=== PATIENT | female | born 1990 | race Two or more races ===

== ENCOUNTER 2018-10-30 21:16 | Emergency (ER) | payer SELFPAY ==
[~2018-10-30] VITALS: Ht 149.9 cm; Wt 77.1 kg
--- NOTE | 2018-10-30 21:21 | ED.ADGEN ---
Past History Past Medical History: Kidney Stones, UTI Adult General Chief Complaint Chief Complaint ".. I am hurting really bad.. on my Rt. flank.. like when I had a kidney stone before..." HPI HPI Patient is a 27 year old female who presents with above hx and complaints of Flank pain, nausea and vomiting. Patient rates pain as severe. Pain is in right flank and radiates to her pelvic area. No history of vaginal discharge. No history of trauma. Pt. has hx prior renal stone age 16. Pt. has had previous urinary tract infections. Patient denies intake of bad food, travel or specific ill contacts. Patient normally healthy. No history immunosuppression. Review of Systems Review of Systems Constitutional: Denies fever or chills [] Eyes: Denies change in visual acuity, redness, or eye pain [] HENT: Denies nasal congestion or sore throat [] Respiratory: Denies cough or shortness of breath [] Cardiovascular: No additional information not addressed in HPI [] GI: Plaints of right flank abdominal pain, nausea, vomiting. Denies, bloody stools or diarrhea [] : Denies dysuria or hematuria [] Musculoskeletal: Right flank back pain Integument: Denies rash or skin lesions [] Neurologic: Denies headache, focal weakness or sensory changes [] Endocrine: Denies polyuria or polydipsia [] All other systems were reviewed and found to be within normal limits, except as documented in this note. Family History Family History Noncontributory. No history of gallstones. No history of renal stones. No history of colitis. Current Medications Current Medications Current Medications Medications (Trade) Dose Ordered Sig/Qamar Start Time Stop Time Status Last Admin Dose Admin Ceftriaxone Sodium 1 gm/ Sodium Chloride 50 ml @ 100 mls/hr 1X ONCE 10/30/18 23:30 10/30/18 23:59 DC 10/30/18 23:12 100 MLS/HR Ceftriaxone Sodium (Rocephin) 1 gm STK-MED ONCE 10/30/18 23:10 10/30/18 23:11 DC Diphenhydramine HCl (Benadryl) 50 mg 1X ONCE 10/31/18 01:00 10/31/18 01:01 10/31/18 00:42 50 MG Famotidine (Pepcid Vial) 20 mg 1X ONCE 5/28/19 22:30 10/30/18 22:31 DC 10/30/18 22:25 20 MG Ketorolac Tromethamine (Toradol 30mg Vial) 30 mg 1X ONCE 10/30/18 23:30 10/30/18 23:31 DC 10/30/18 23:31 30 MG Lactated Ringer's 1,000 ml @ 1,000 mls/hr Q1H 10/30/18 22:04 10/30/18 23:03 DC 10/30/18 22:26 1,000 MLS/HR Morphine Sulfate (Morphine 10mg Syringe) 10 mg 1X ONCE 10/31/18 00:00 10/31/18 00:01 DC 10/31/18 00:07 10 MG Ondansetron HCl (Zofran) 8 mg 1X ONCE 10/31/18 00:00 10/31/18 00:01 DC 10/31/18 00:06 8 MG Prochlorperazine Edisylate (Compazine) 10 mg 1X ONCE 10/31/18 01:00 10/31/18 01:01 10/31/18 00:42 10 MG Sodium Chloride 50 ml @ As Directed STK-MED ONCE 10/30/18 23:10 10/30/18 23:11 DC Trimethoprim/ Sulfamethoxazole (Bactrim Ds) 1 tab 1X ONCE 10/31/18 00:00 10/31/18 00:01 DC 10/31/18 00:07 1 TAB Allergies Allergies Allergies Coded Allergies Type Severity Reaction Last Updated Verified No Known Drug Allergies 10/30/18 No Physical Exam Physical Exam Constitutional: Well developed, well nourished, in acute distress, non-toxic rowena earance. [] HENT: Normocephalic, atraumatic, bilateral external ears normal, oropharynx moist, no oral exudates, nose normal. [] Eyes: PERRLA, EOMI, conjunctiva normal, no discharge. [] Neck: Normal range of motion, no tenderness, supple, no stridor. [] Cardiovascular:Heart rate regular rhythm, no murmur [] Lungs & Thorax: Bilateral breath sounds equal apexes with a few scattered wheezes on bilateral bases on auscultation []no true rebound Abdomen: Bowel sounds decreased, soft, right flank tenderness, no masses, no pulsatile masses. [Mild epigastric tenderness. No true rebound.] Skin: Warm, dry, no erythema, no rash. Tattoos Back: No tenderness, right CVA tenderness. [] Extremities: No tenderness, no cyanosis, no clubbing, ROM intact, no edema. [] No psoas sign Neurologic: Alert and oriented X 3, normal motor function, normal sensory function, no focal deficits noted. [] Psychologic: Affect anxious, judgement normal, mood normal. [] Current Patient Data Vital Signs Vital Signs Date Time Temp Pulse Resp B/P (MAP) Pulse Ox O2 Delivery O2 Flow Rate FiO2 10/31/18 00:07 18 Room Air 10/30/18 23:06 98.3 71 130/83 (99) 99 Lab Results Laboratory Tests Test 10/30/18 21:29 10/30/18 21:46 10/30/18 22:00 10/30/18 22:04 Urine Collection Type Unknown Urine Color Carmenza Urine Clarity Hazy Urine pH 6.0 Urine Specific [place] 1.025 Urine Protein >100 mg/dl (NEG-TRACE) Urine Glucose (UA) Neg mg/dL (NEG) Urine Ketones (Stick) Trace mg/dL (NEG) Urine Blood Large (NEG) Urine Nitrite Neg (NEG) Urine Bilirubin Neg (NEG) Urine Urobilinogen Dipstick 1 mg/dL (0.2 mg/dL) Urine Leukocyte Esterase Trace (NEG) Urine RBC Tntc /HPF (0-2) Urine WBC 11-20 /HPF (0-4) Urine Squamous Epithelial Cells Occ /LPF Urine Bacteria Few /HPF (0-FEW) Urine Mucus Mod /LPF Urine Opiates Screen Neg (NEG) Urine Methadone Screen Neg (NEG) Urine Barbiturates Neg (NEG) Urine Phencyclidine Screen Neg (NEG) Urine Amphetamine/Methamphetamine Neg (NEG) Urine Benzodiazepines Screen Neg (NEG) Urine Cocaine Screen Neg (NEG) Urine Cannabinoids Screen Pos (NEG) Urine Ethyl Alcohol Neg (NEG) White Blood Count 11.1 x10^3/uL (4.0-11.0) H Red Blood Count 4.86 x10^6/uL (3.50-5.40) Hemoglobin 14.7 g/dL (12.0-15.5) Hematocrit 43.3 % (36.0-47.0) Mean Corpuscular Volume 89 fL (79-100) Mean Corpuscular Hemoglobin 30 pg (25-35) Mean Corpuscular Hemoglobin Concent 34 g/dL (31-37) Red Cell Distribution Width 12.6 % (11.5-14.5) Platelet Count 269 x10^3/uL (140-400) Neutrophils (%) (Auto) 76 % (31-73) H Lymphocytes (%) (Auto) 19 % (24-48) L Monocytes (%) (Auto) 5 % (0-9) Eosinophils (%) (Auto) 0 % (0-3) Basophils (%) (Auto) 0 % (0-3) Neutrophils # (Auto) 8.5 x10^3uL (1.8-7.7) H Lymphocytes # (Auto) 2.1 x10^3/uL (1.0-4.8) Monocytes # (Auto) 0.6 x10^3/uL (0.0-1.1) Eosinophils # (Auto) 0.0 x10^3/uL (0.0-0.7) Basophils # (Auto) 0.0 x10^3/uL (0.0-0.2) Prothrombin Time 10.5 SEC (9.4-11.4) Prothrombin Time INR 1.1 (0.9-1.1) PTT 28 SEC (23-33) Sodium Level 141 mmol/L (136-145) Potassium Level 3.6 mmol/L (3.5-5.1) Chloride Level 103 mmol/L (98-107) Carbon Dioxide Level 25 mmol/L (21-32) Anion Gap 13 (6-14) Blood Urea Nitrogen 16 mg/dL (7-20) Creatinine 0.9 mg/dL (0.6-1.0) Estimated GFR (Cockcroft-Gault) 75.1 Glucose Level 96 mg/dL (70-99) Calcium Level 9.3 mg/dL (8.5-10.1) Total Bilirubin 0.3 mg/dL (0.2-1.0) Direct Bilirubin 0.1 mg/dL (0.0-0.2) Aspartate Amino Transferase (AST) 15 U/L (15-37) Alanine Aminotransferase (ALT) 26 U/L (14-59) Alkaline Phosphatase 88 U/L (46-116) Total Protein 8.2 g/dL (6.4-8.2) Albumin 4.2 g/dL (3.4-5.0) Lipase 118 U/L (73-393) POC Urine HCG, Qualitative hcg negative (Negative) EKG EKG My interpretation of EKG shows sinus rhythm at 73 bpm no findings acute STEMI with contralateral changes.[] Radiology/Procedures Radiology/Procedures My interpretation of acute abdomen film shows no acute cardiopulmonary findings. Does have findings of gallstones on right. Does have findings of a renal stone or calcification on right lower pelvis area. CT of abdomen shows gallstones. Hydronephrosis on right. In the distal 6 mm stone. No ovarian cysts. Appendix appears to be normal. See formal report when available Course & Med Decision Making Course & Med Decision Making Pertinent Labs and Imaging studies reviewed. (See chart for details) Push clear fluids. No solids or milk products of actively nauseated. Save stone if passed. Take Vicoprofen up to 4 times a day for pain. May also take Tylenol and ibuprofen. Take Zofran 8 mg up 4 times a day for nausea and vomiting. Take Bactrim DS twice a day for 7 days. Follow up urine cultures. Follow up with primary. Follow-up with urology. Return if any concerns. Encouraged patient to not smoke. [] Final Impression Final Impression 1. Abdomen pain 2. Renal colic-distal renal stone 6 mm@UVJ[] 3. Leukocytosis 11 4. Marijuana and tobacco use 5. Urinary tract infection Dragon Disclaimer Dragon Disclaimer This electronic medical record was generated, in whole or in part, using a voice recognition dictation system. Discharge Summary Visit Information Final Diagnosis Problems Medical Problems: (1) Kidney stone Status: Acute (2) Renal colic on right side Status: Acute Brief Hospital Course Allergies Allergies Coded Allergies Type Severity Reaction Last Updated Verified No Known Drug Allergies 10/30/18 No Vital Signs Vital Signs Date Time Temp Pulse Resp B/P (MAP) Pulse Ox O2 Delivery O2 Flow Rate FiO2 10/31/18 00:07 18 Room Air 10/30/18 23:06 98.3 71 130/83 (99) 99 Lab Results Laboratory Tests Test 10/30/18 21:29 10/30/18 21:46 10/30/18 22:00 10/30/18 22:04 Urine Collection Type Unknown Urine Color Carmenza Urine Clarity Hazy Urine pH 6.0 Urine Specific [place] 1.025 Urine Protein >100 mg/dl (NEG-TRACE) Urine Glucose (UA) Neg mg/dL (NEG) Urine Ketones (Stick) Trace mg/dL (NEG) Urine Blood Large (NEG) Urine Nitrite Neg (NEG) Urine Bilirubin Neg (NEG) Urine Urobilinogen Dipstick 1 mg/dL (0.2 mg/dL) Urine Leukocyte Esterase Trace (NEG) Urine RBC Tntc /HPF (0-2) Urine WBC 11-20 /HPF (0-4) Urine Squamous Epithelial Cells Occ /LPF Urine Bacteria Few /HPF (0-FEW) Urine Mucus Mod /LPF Urine Opiates Screen Neg (NEG) Urine Methadone Screen Neg (NEG) Urine Barbiturates Neg (NEG) Urine Phencyclidine Screen Neg (NEG) Urine Amphetamine/Methamphetamine Neg (NEG) Urine Benzodiazepines Screen Neg (NEG) Urine Cocaine Screen Neg (NEG) Urine Cannabinoids Screen Pos (NEG) Urine Ethyl Alcohol Neg (NEG) White Blood Count 11.1 x10^3/uL (4.0-11.0) Red Blood Count 4.86 x10^6/uL (3.50-5.40) Hemoglobin 14.7 g/dL (12.0-15.5) Hematocrit 43.3 % (36.0-47.0) Mean Corpuscular Volume 89 fL (79-100) Mean Corpuscular Hemoglobin 30 pg (25-35) Mean Corpuscular Hemoglobin Concent 34 g/dL (31-37) Red Cell Distribution Width 12.6 % (11.5-14.5) Platelet Count 269 x10^3/uL (140-400) Neutrophils (%) (Auto) 76 % (31-73) Lymphocytes (%) (Auto) 19 % (24-48) Monocytes (%) (Auto) 5 % (0-9) Eosinophils (%) (Auto) 0 % (0-3) Basophils (%) (Auto) 0 % (0-3) Neutrophils # (Auto) 8.5 x10^3uL (1.8-7.7) Lymphocytes # (Auto) 2.1 x10^3/uL (1.0-4.8) Monocytes # (Auto) 0.6 x10^3/uL (0.0-1.1) Eosinophils # (Auto) 0.0 x10^3/uL (0.0-0.7) Basophils # (Auto) 0.0 x10^3/uL (0.0-0.2) Prothrombin Time 10.5 SEC (9.4-11.4) Prothromb Time International Ratio 1.1 (0.9-1.1) Activated Partial Thromboplast Time 28 SEC (23-33) Sodium Level 141 mmol/L (136-145) Potassium Level 3.6 mmol/L (3.5-5.1) Chloride Level 103 mmol/L (98-107) Carbon Dioxide Level 25 mmol/L (21-32) Anion Gap 13 (6-14) Blood Urea Nitrogen 16 mg/dL (7-20) Creatinine 0.9 mg/dL (0.6-1.0) Estimated GFR (Cockcroft-Gault) 75.1 Glucose Level 96 mg/dL (70-99) Calcium Level 9.3 mg/dL (8.5-10.1) Total Bilirubin 0.3 mg/dL (0.2-1.0) Direct Bilirubin 0.1 mg/dL (0.0-0.2) Aspartate Amino Transf (AST/SGOT) 15 U/L (15-37) Alanine Aminotransferase (ALT/SGPT) 26 U/L (14-59) Alkaline Phosphatase 88 U/L (46-116) Total Protein 8.2 g/dL (6.4-8.2) Albumin 4.2 g/dL (3.4-5.0) Lipase 118 U/L (73-393) Bedside Urine HCG, Qualitative hcg negative (Negative) Brief Hospital Course Ms. Boateng is a 27 old female who presented with Rt. renal stone. Discharge Information Condition at Discharge: Improved, Stable Disposition/Orders: D/C to Home Dischare Medications Current Medications Lactated Ringer's 1,000 ml @ 1,000 mls/hr Q1H IV Last administered on 10/30/18at 22:26; Admin Dose 1,000 MLS/HR; Start 10/30/18 at 22:04; Stop 10/30/18 at 23:03; Status DC Ondansetron HCl (Zofran) 8 mg 1X ONCE IV Last administered on 10/30/18at 22:25; Admin Dose 8 MG; Start 10/30/18 at 22:30; Stop 10/30/18 at 22:31; Status DC Famotidine (Pepcid Vial) 20 mg 1X ONCE IVP Last administered on 10/30/18at 22:25; Admin Dose 20 MG; Start 10/30/18 at 22:30; Stop 10/30/18 at 22:31; Status DC Morphine Sulfate (Morphine 10mg Syringe) 10 mg 1X ONCE SQ Last administered on 10/30/18at 22:24; Admin Dose 10 MG; Start 10/30/18 at 22:30; Stop 10/30/18 at 22:31; Status DC Ceftriaxone Sodium 1 gm/ Sodium Chloride 50 ml @ 100 mls/hr 1X ONCE IV Last administered on 10/30/18at 23:12; Admin Dose 100 MLS/HR; Start 10/30/18 at 23:30; Stop 10/30/18 at 23:59; Status DC Ketorolac Tromethamine (Toradol 30mg Vial) 30 mg 1X ONCE IV Last administered on 10/30/18at 23:31; Admin Dose 30 MG; Start 10/30/18 at 23:30; Stop 10/30/18 at 23:31; Status DC Sodium Chloride 50 ml @ As Directed STK-MED ONCE .ROUTE ; Start 10/30/18 at 23:10; Stop 10/30/18 at 23:11; Status DC Ceftriaxone Sodium (Rocephin) 1 gm STK-MED ONCE .ROUTE ; Start 10/30/18 at 23:10; Stop 10/30/18 at 23:11; Status DC Morphine Sulfate (Morphine 10mg Syringe) 10 mg 1X ONCE SQ Last administered on 10/31/18at 00:07; Admin Dose 10 MG; Start 10/31/18 at 00:00; Stop 10/31/18 at 00:01; Status DC Ondansetron HCl (Zofran) 8 mg 1X ONCE IV Last administered on 10/31/18at 00:06; Admin Dose 8 MG; Start 10/31/18 at 00:00; Stop 10/31/18 at 00:01; Status DC Trimethoprim/ Sulfamethoxazole (Bactrim Ds) 1 tab 1X ONCE PO Last administered on 10/31/18at 00:07; Admin Dose 1 TAB; Start 10/31/18 at 00:00; Stop 10/31/18 at 00:01; Status DC Prochlorperazine Edisylate (Compazine) 10 mg 1X ONCE IM Last administered on 10/31/18at 00:42; Admin Dose 10 MG; Start 10/31/18 at 01:00; Stop 10/31/18 at 01:01 Diphenhydramine HCl (Benadryl) 50 mg 1X ONCE IM Last administered on 10/31/18at 00:42; Admin Dose 50 MG; Start 10/31/18 at 01:00; Stop 10/31/18 at 01:01 Active Scripts Active Bactrim Ds Tablet (Sulfamethoxazole/Trimethoprim) 1 Each Tablet 1 Tab PO BID Zofran (Ondansetron Hcl) 8 Mg Tablet 8 Mg PO QIDPRN PRN Hydrocodone-Ibuprofen 7.5-200 (Hydrocodone/Ibuprofen) 1 Each Tablet 1 Tab PO PRN Q6HRS PRN Dragon Disclaimer This chart was dictated in whole or in part using Voice Recognition software in a busy, high-work load, and often noisy Emergency Department environment. It may contain unintended and wholly unrecognized errors or omissions. ERINN OCONNOR MD October 30, 2018 21:20
[2018-10-30] MEDS ORDERED: IV RINGERS SOLUTION,LACTATED 1,000 ML IV SCH (22:04)
--- NOTE | 2018-10-30 22:15 | EKG ---
[address] [address] Test Date: 2018-10-30 Test Time: 22:15:04 Pat Name: KRYSTINA DENNEY Department: Room: Gender: F [employer]: : 1990 Requested By: ERINN OCONNOR Order Number: [id number] Reading MD: Measurements Intervals [place] Rate: 73 P: 28 DE: 128 QRS: 34 QRSD: 76 T: 11 QT: 352 QTc: 391 Interpretive Statements SINUS RHYTHM NORMAL ECG RI6.01 No previous ECG available for comparison
[2018-10-30 22:24] LABS: BASO % 0 % (0-3); EOS % 0 % (0-3); HEMATOCRIT 43.3 % (36.0-47.0); HEMOGLOBIN 14.7 g/dL (12.0-15.5); LYMPH # 2.1 x10^3/uL (1.0-4.8); LYMPH % 19 % (24-48); MEAN CORPUSCULAR HEMOGLOBIN 30 pg (25-35); MEAN CORPUSCULAR HGB CONC 34 g/dL (31-37); MEAN CORPUSCULAR VOLUME 89 fL (79-100); MONO # 0.6 x10^3/uL (0.0-1.1); MONO % 5 % (0-9); NEUT # 8.5 x10^3uL (1.8-7.7); NEUT % 76 % (31-73); PLATELET COUNT 269 x10^3/uL (140-400); RED BLOOD COUNT 4.86 x10^6/uL (3.50-5.40); RED CELL DISTRIBUTION WIDTH 12.6 % (11.5-14.5); WHITE BLOOD COUNT 11.1 x10^3/uL (4.0-11.0)
[2018-10-30 22:27] LABS: BACTERIA,URINE FEW /HPF (0-FEW); BILIRUBIN,URINE NEG (NEG); CLARITY,URINE HAZY; COLOR,URINE AMBER; GLUCOSE,URINE NEG (NEG); NITRITE,URINE NEG (NEG); RBC,URINE TNTC /HPF (0-2); SQUAMOUS EPITHELIAL CELL,UR OCC /LPF; UROBILINOGEN,URINE 1 mg/dL (0.2 mg/dL)
[2018-10-30 22:29] LABS: BARBITURATES NEG (NEG); BENZODIAZEPINES NEG (NEG); CANNABINOIDS POS (NEG); COCAINE NEG (NEG); METHADONE NEG (NEG); OPIATES NEG (NEG); PHENCYCLIDINE NEG (NEG)
[2018-10-30] MEDS ORDERED: MORPHINE SULFATE 10 MG/ML SYRINGE. SQ ONE (22:30)
[2018-10-30] MEDS ORDERED: FAMOTIDINE 20 MG/2 ML VIAL IVP ONE (22:30)
[2018-10-30] MEDS ORDERED: ONDANSETRON PF 4 MG/2 ML VIAL. IV ONE (22:30)
[2018-10-30 22:32] LABS: AMPHETAMINE/METHAMPHETAMINE NEG (NEG)
[2018-10-30 22:43] LABS: ALBUMIN 4.2 g/dL (3.4-5.0); CALCIUM 9.3 mg/dL (8.5-10.1); CREATININE 0.9 mg/dL (0.6-1.0); DIRECT BILIRUBIN 0.1 mg/dL (0.0-0.2); GFR 75.1; POTASSIUM 3.6 mmol/L (3.5-5.1); TOTAL BILIRUBIN 0.3 mg/dL (0.2-1.0); TOTAL PROTEIN 8.2 g/dL (6.4-8.2)
[2018-10-30] MEDS ORDERED: cefTRIAXone SODIUM 1 GM VIAL ONE (23:10)
[2018-10-30] MEDS ORDERED: IV NORMAL SALINE 50ML 50 ML ONE (23:10)
--- NOTE | 2018-10-30 23:16 | RAD ---
CT scan of the abdomen and pelvis without contrast 10/22/2018 CLINICAL HISTORY: Right flank pain. TECHNIQUE: Unenhanced, contiguous, 3 mm axial sections were obtained through the abdomen and pelvis. One or more of the following individualized dose reduction techniques were utilized for this study: 1. Automated exposure control. 2. Adjustment of the mA and/or kV according to patient size. 3. Use of iterative reconstruction technique. FINDINGS: Images through the lung bases demonstrate minimal dependent subsegmental atelectasis bilaterally. The liver, spleen, pancreas, and adrenal glands are within normal limits. The right kidney is mildly enlarged. Mild to moderate dilatation of the right ureter is seen. Within the distal right ureter approximately 3 cm superior to the expected location of the right UVJ a 6 mm distal right ureteral calculus is seen. It is causing mild to moderate obstruction of the right collecting system. There is no evidence of obstruction of the left collecting system. Calcified gallstones are seen within the gallbladder. No free fluid or free air is seen within the abdomen. There is no evidence of bowel obstruction. The appendix is well-visualized and is within normal limits. Images through the pelvis demonstrate the urinary bladder distended with urine. No adnexal mass is seen. No free fluid is noted. Minimal S-shaped curvature of the thoracolumbar spine is seen. IMPRESSION: 6 mm distal right ureteral calculus is seen which is causing mild to moderate obstruction of the right collecting system. Electronically signed by: Keon Hawk MD (10/30/2018 11:13 PM) [facility]
[2018-10-30] MEDS ORDERED: KETOROLAC 30 MG/ML VIAL. IV ONE (23:30)
[2018-10-30] MEDS ORDERED: HYDR-1179 PO (23:32)
[2018-10-30] MEDS ORDERED: ONDA8TAB9 PO (23:32)
[2018-10-30] MEDS ORDERED: SULF1TAB24 PO (23:32)
--- NOTE | 2018-10-30 23:55 | RAD ---
Acute abdominal series to include a PA chest radiograph 10/22/2018 Clinical History: Right flank pain. Hematuria. A PA digital radiograph of the chest was obtained. Two supine and an erect AP digital radiographs of the abdomen/pelvis were obtained. No previous studies are available for comparison. The cardiac and mediastinal silhouettes are within normal limits in size and configuration. No pulmonary infiltrate is seen. No pleural effusion or pneumothorax is noted. The abdominal bowel gas pattern is nonobstructive. There is no evidence of free air. A 6 mm calcification is seen within the right pelvis which likely represents a distal right ureteral calculus. Smaller calcifications are seen within the pelvis consistent with phleboliths. The osseous structures are grossly intact. Impression: 6 mm probable distal right ureteral calculus. Electronically signed by: Keon Hawk MD (10/30/2018 11:52 PM) [facility]
[2018-10-31] MEDS ORDERED: SMZ/TMP 800/160MG TABLET. PO ONE
[2018-10-31] MEDS ORDERED: ONDANSETRON PF 4 MG/2 ML VIAL. IV ONE
[2018-10-31] MEDS ORDERED: MORPHINE SULFATE 10 MG/ML SYRINGE. SQ ONE
[2018-10-31 00:13] VITALS: BP 120/72
[2018-10-31] MEDS ORDERED: diphenhydrAMINE 50 MG/ML VIAL IM ONE (01:00)
[2018-10-31] MEDS ORDERED: PROCHLORPERAZINE 10 MG/2 ML VIAL. IM ONE (01:00)
== END 2018-10-31 00:55 | disposition home or self-care (01) ==
LOC: ER 21:16
DX: N13.2 Hydronephrosis with renal and ureteral calculous obstruction (principal); K80.20 Calculus of gallbladder without cholecystitis without obstruction; D72.829 Elevated white blood cell count, unspecified; N39.0 Urinary tract infection, site not specified; R11.2 Nausea with vomiting, unspecified; F12.10 Cannabis abuse, uncomplicated; Z87.442 Personal history of urinary calculi; Z87.440 Personal history of urinary (tract) infections; Z72.0 Tobacco use
CPT/HCPCS: 36415; 74022; 74176; 80048; 80076; 80307; 81001; 81025; 83690; 85025; 85610; 85730; 87086; 93005; 96361; 96365; 96372; 96375; 96376; 99285; J0696; J0780; J1200; J1885; J2270; J2405; J3490; J7120

== ENCOUNTER 2021-04-30 09:20 | Emergency (ER) | payer SELFPAY ==
[~2021-04-30] VITALS: Ht 149.9 cm; Wt 81.1 kg
[~2021-04-30 09:20] MED LIST: HYDR-1179 PO; ONDA8TAB9 PO; SULF1TAB24 PO
[2021-04-30] MEDS ORDERED: DEXAMETHASONE SOD PHOS 10 MG/ML VIAL. IVP ONE (09:45)
--- NOTE | 2021-04-30 09:52 | PHYS DOC ---
Past History Past Medical History: Kidney Stones, UTI Past Surgical History: Other Additional Past Surgical Histo: LEAP Alcohol Use: Rarely Drug Use: Marijuana General Adult EDM: Chief Complaint: SHORTNESS OF BREATH HPI: HPI: 30-year-old female presents with shortness of breath and COVID-19. She just tested positive on Monday. This is also when her symptoms started. Her is also positive. Patient presents with fatigue, body aches, headache, shortness of breath. She got her first COVID-19 shot 1 week ago. She denies fever or chills. Review of Systems: Review of Systems: Constitutional: Denies fever or chills. Body aches, fatigue Eyes: Denies change in visual acuity HENT: Denies nasal congestion or sore throat Respiratory: shortness of breath Cardiovascular: Denies chest pain or edema GI: Denies abdominal pain, nausea, vomiting, bloody stools or diarrhea : Denies dysuria Musculoskeletal: Denies back pain or joint pain Integument: Denies rash Neurologic: Headache. Denies focal weakness or sensory changes Endocrine: Denies polyuria or polydipsia Lymphatic: Denies swollen glands Psychiatric: Denies depression or anxiety Current Medications: Current Meds: Current Medications Medications (Trade) Dose Ordered Sig/Qaamr Start Time Stop Time Status Last Admin Dose Admin Dexamethasone Sodium Phosphate (Decadron) 10 mg 1X ONCE 04/30/21 09:45 04/30/21 09:47 DC Allergies: Allergies: Allergies Coded Allergies Type Severity Reaction Last Updated Verified No Known Drug Allergies 10/30/18 No Physical Exam: PE: Constitutional: Well developed, well nourished, obese, no acute distress, non- toxic appearance. [] HENT: Normocephalic, atraumatic, bilateral external ears normal, oropharynx moist, no oral exudates, nose normal. [] Eyes: PERRLA, EOMI, conjunctiva normal, no discharge. [] Neck: Normal range of motion, no tenderness, supple, no stridor. [] Cardiovascular: Heart rate regular rhythm, no murmur [] Lungs & Thorax: Bilateral breath sounds clear to auscultation [] Abdomen: Bowel sounds normal, soft, no tenderness, no masses, no pulsatile masses. [] Skin: Warm, dry, no erythema, no rash. [] Back: No tenderness, no CVA tenderness. [] Extremities: No tenderness, no cyanosis, no clubbing, ROM intact, no edema. [] Neurologic: Alert and oriented X 3, normal motor function, normal sensory function, no focal deficits noted. [] Psychologic: Affect normal, judgement normal, mood normal. [] Current Patient Data: Vital Signs: Vital Signs Date Time Temp Pulse Resp B/P (MAP) Pulse Ox O2 Delivery O2 Flow Rate FiO2 04/30/21 09:38 99.6 102 18 125/83 (97) 100 EKG: EKG: [] Radiology/Procedures: Radiology/Procedures: [] Impressions: EXAM: AP View of the chest DATE: 04/30/2021 10:23 AM INDICATION: COVID-19 COMPARISON: No Prior FINDINGS: The heart is not enlarged. Mediastinal and hilar contours are normal. No focal parenchymal airspace opacity. No pleural effusion or pneumothorax. IMPRESSION: 1. No radiographic evidence for acute cardiopulmonary process. Electronically signed by: Evert Montana MD (04/30/2021 10:29 AM) [id number] DICTATED AND SIGNED BY: EVERT MONTANA MD DATE: 04/30/21 1029 CC: GIUSEPPE MARTINEZ DO; PCP,NO ~MTH0 0 Heart Score: C/O Chest Pain: N/A Risk Factors: Risk Factors: DM, Current or recent (<one month) smoker, HTN, HLP, family history of CAD, obesity. Risk Scores: Score 0 - 3: 2.5% MACE over next 6 weeks - Discharge Home Score 4 - 6: 20.3% MACE over next 6 weeks - Admit for Clinical Observation Score 7 - 10: 72.7% MACE over next 6 weeks - Early Invasive Strategies Course & Med Decision Making: Course & Med Decision Making Pertinent Labs and Imaging studies reviewed. (See chart for details) The patient's labs are unremarkable. Her chest x-ray is negative for acute findings. These are normal symptoms for COVID-19. I will treat her with Decadron in the ER and a prescription for home. She is stable for discharge at this time. [] Dragon Disclaimer: Dragon Disclaimer: This electronic medical record was generated, in whole or in part, using a voice recognition dictation system. Departure Departure: Impression: Primary Impression: COVID-19 Disposition: 01 HOME / SELF CARE / HOMELESS Condition: STABLE Referrals: PCP,ALY (PCP) Patient Instructions: Viral Syndrome Additional Instructions: You have been tested for or diagnosed with COVID-19. It is an infection caused by a new type of coronavirus. COVID-19 will cause cold-like or mild flu symptoms in most. It can cause more severe symptoms like problems breathing in some. There is no treatment for COVID-19. The body will clear the infection over time. Self-care will help to ease discomfort. Steps to Take: Self-Care Rest as needed. Healthy habits may help you feel better. Steps include: Choose healthy foods including fruits and vegetables. Drink water throughout the day. Get plenty of sleep each night. If you smoke, try to quit. It may ease breathing. Avoid alcohol. Keep Others Healthy The virus can spread to others. Droplets are released every time you sneeze or cough. The droplets can get into the mouth, nose, or eyes of people near you and lead to infection. To lower the chances of spreading COVID-19 to others: Stay at home until your doctor has said it is safe to leave. If you tested positive this will mean staying isolated until both of the following are true: At least 7 days have passed since the start of illness. You are free of fever for at least 72 hours without the use of medicine. During this time: - Avoid public areas, events, or transportation. Do not return to work or school until your doctor has said it is safe to do so. - Call ahead if you need to go to a medical center. Let them know you may have COVID-19. It will help them guide you where to go. They may also ask you to wear a facemask when you come to the office. - If you call for emergency medical services, let them know you may have COVID- 19. While at home: - Try to avoid close contact with others. Stay about 6 feet away. - If possible, spend most of your time in a separate room from others. - Use a face mask if you will be in close contact with others such as sharing a room or vehicle. - Have someone wipe down common surfaces in the home. Use household automatic machines supervisor every day on areas like doorknobs, counters, or sinks. - Cough or sneeze into a tissue. Throw the tissue away right after use. If a tissue is not available, cough or sneeze into your elbow. - Wash your hands often. Wash them after sneezing or coughing. Use soap and water and wash for at least 20 seconds. Alcohol based hand drum cleaner can be used if soap and water is not available. - Do not prepare food for others. Avoid sharing personal items like forks, spoons, or toothbrushes. - Avoid close contact with pets while you are sick. There is no evidence of the virus passing to pets. This is a safety step until more is known about this virus. Isolation can be frustrating. Social interaction can help. Keep in touch with friends and family through phone and tech options. You can still interact with others in your home, just keep a safe distance of about 6 feet. Follow-up: Your doctors office will check in with you to see if there are any changes in your health. You may be asked to keep track of symptoms to share with them. They will also let you know when you are clear to be in public again. Problems to Look Out For: Contact your doctor if your recovery is not going as you expect. Get emergency care if you have problems such as: - Trouble breathing - Nonstop chest pain or pressure - Changes in awareness, confusion, or problems waking - Lips or face have bluish color - Worsening of symptoms If you think you have an emergency, call for emergency medical services right aw ay. As taken from [facility] Dexamethasone (Decadron) 4 Mg Tablet 1 TAB PO BID for covid-19 for 4 Days, #8 TAB 0 Refills Prov: GIUSEPPE MARTINEZ DO 04/30/21 GIUSEPPE MARTINEZ DO Apr 30, 2021 09:52
[2021-04-30] MEDS ORDERED: IV NORMAL SALINE 1,000ML 1,000 ML IV ONE (10:00)
[2021-04-30] MEDS ORDERED: ACETAMINOPHEN 500 MG TABLET PO ONE (10:00)
[2021-04-30 10:25] LABS: BASO % 0 % (0-3); EOS % 0 % (0-3); HEMATOCRIT 42.8 % (36.0-47.0); HEMOGLOBIN 14.6 g/dL (12.0-15.5); LYMPH # 1.4 x10^3/uL (1.0-4.8); LYMPH % 31 % (24-48); MEAN CORPUSCULAR HEMOGLOBIN 31 pg (25-35); MEAN CORPUSCULAR HGB CONC 34 g/dL (31-37); MEAN CORPUSCULAR VOLUME 90 fL (79-100); MONO # 0.6 x10^3/uL (0.0-1.1); MONO % 13 % (0-9); NEUT # 2.5 x10^3uL (1.8-7.7); NEUT % 56 % (31-73); PLATELET COUNT 246 x10^3/uL (140-400); RED BLOOD COUNT 4.75 x10^6/uL (3.50-5.40); RED CELL DISTRIBUTION WIDTH 12.9 % (11.5-14.5); WHITE BLOOD COUNT 4.4 x10^3/uL (4.0-11.0)
[2021-04-30 10:31] LABS: CALCIUM 8.9 mg/dL (8.5-10.1); CREATININE 0.8 mg/dL (0.6-1.0); GFR 84.2
--- NOTE | 2021-04-30 10:31 | RAD ---
EXAM: AP View of the chest DATE: 04/30/2021 10:23 AM INDICATION: COVID-19 COMPARISON: No Prior FINDINGS: The heart is not enlarged. Mediastinal and hilar contours are normal. No focal parenchymal airspace opacity. No pleural effusion or pneumothorax. IMPRESSION: 1. No radiographic evidence for acute cardiopulmonary process. Electronically signed by: Evert Montana MD (04/30/2021 10:29 AM) [id number]
[2021-04-30 10:36] LABS: ALBUMIN 3.6 g/dL (3.4-5.0); ALBUMIN/GLOBULIN RATIO 0.8 (1.0-1.7); TOTAL BILIRUBIN 0.3 mg/dL (0.2-1.0); TOTAL PROTEIN 7.9 g/dL (6.4-8.2)
[2021-04-30] MEDS ORDERED: DEXA4TAB63 PO (11:02)
[2021-04-30 11:05] VITALS: BP 110/71
--- NOTE | 2021-04-30 11:15 | EKG ---
[address] [address] Test Date: 2021-04-30 Test Time: 10:11:34 Pat Name: KRYSTINA DENNEY Department: Room: Gender: F [employer] Process Worker: FREDO : 1990 Requested By: GIUSEPPE MARTINEZ Order Number: [id number] Reading MD: David Caceres Measurements Intervals [place] Rate: 75 P: [place]: QRS: 35 QRSD: 76 T: 10 QT: 344 QTc: 387 Interpretive Statements SINUS RHYTHM Electronically Signed On 05-03-2021 10:21:16 [employer]ARD[employer]CH[employer]IC by David Caceres
== END 2021-04-30 11:28 | disposition home or self-care (01) ==
LOC: ER 09:20
DX: U07.1 COVID-19 (principal); Z87.442 Personal history of urinary calculi; Z87.440 Personal history of urinary (tract) infections
CPT/HCPCS: 36415; 71045; 80053; 84484; 85025; 93005; 96361; 96374; 99285; J1100; J7030